=== PATIENT | male | born 1970 | race African-American/Black ===

== ENCOUNTER 2018-12-22 13:35 | Inpatient (IN) | payer BC ==
[2018-12-22 14:32] VITALS: BMI 34.2
--- NOTE | 2018-12-22 14:52 | HP ---
CIWA Score Nausea/Vomitin-Mild Nausea/No Vomiting Muscle Tremors: 2 Anxiety: 2 Agitation: 1-Slight > Activity Paroxysmal Sweats: 3 Orientation: 1-Uncertain about Date Tacttile Disturbances: 0-None Auditory Disturbances: 1-Very Mild Visual Disturbances: 2-Mild Sensitivity Headache: 1-Very Mild CIWA-Ar Total Score: 14 - Admission Criteria OASAS Guidelines: Admission for Medically Managed Detox: Requires at least one of the followin. CIWA greater than 12 2. Seizures within the past 24 hours 3. Delirium tremens within the past 24 hours 4. Hallucinations within the past 24 hours 5. Acute intervention needed for co occurring medical disorder 6. Acute intervention needed for co occurring psychiatric disorder 7. Severe withdrawal that cannot be handled at a lower level of care (continued vomiting, continued diarrhea, abnormal vital signs) requiring intravenous medication and/or fluids 8. Admission ROS S - [facility] Chief Complaint: WITHDRAWAL SYMPTOMS Allergies/Adverse Reactions: Allergies Allergy/AdvReac Type Severity Reaction Status Date / Time No Known Allergies Allergy Verified 12/22/18 14:16 History of Present Illness: 48 Y.O. MAN WITH AN EXTENSIVE HISTORY OF ALCOHOL AND COCAINE DEPENDENCE IS HERE SEEKING HIS FIRST ADMISSION TO DETOX. HE WAS AT [facility] ER EARLIER TODAY SEEKING DETOX TREATMENT (DID NOT PROVIDE DISCHARGE PAPERWORK); WAS PICKED BY A [facility] HAND EDGER TO BE ASSESSED HERE. Exam Limitations: No Limitations - Ebola screening Have you traveled outside of the country in the last 21 days: No (N) Have you had contact with anyone from an Ebola affected area: No Do you have a fever: No - Review of Systems Constitutional: Diaphoresis, Loss of Appetite, Night Sweats, Unintentional Wgt. Loss EENT: reports: Blurred Vision, Double Vision Respiratory: reports: Cough Cardiac: reports: No Symptoms Reported GI: reports: Abdominal cramping : reports: No Symptoms Reported Musculoskeletal: reports: No Symptoms Reported Integumentary: reports: No Symptoms Reported Neuro: reports: Headache Endocrine: reports: No Symptoms Reported Hematology: reports: No Symptoms Reported Psychiatric: reports: Anxious, Depressed Other Systems: Reviewed and Negative Patient History - Patient Medical History Hx Anemia: No Hx Asthma: No Hx Chronic Obstructive Pulmonary Disease (COPD): No Hx Cancer: No Hx Cardiac Disorders: No Hx Congestive Heart Failure: No Hx Hypertension: No Hx Hypercholesterolemia: No Hx Pacemaker: No HX Cerebrovascular Accident: No Hx Seizures: No Hx Dementia: No Hx Diabetes: No Hx Gastrointestinal Disorders: No Hx Liver Disease: No Hx Genitourinary Disorders: No Hx Sexually Transmitted Disorders: No Hx Renal Disease (ESRD): No Hx Thyroid Disease: No Hx Human Immunodeficiency Virus (HIV): No Hx Hepatitis C: No Hx Depression: Yes Hx Suicide Attempt: No Hx Bipolar Disorder: No Hx Schizophrenia: No - Patient Surgical History Past Surgical History: No - PPD History Previous Implant?: Yes Documented Results: Negative w/o proof PPD to be Administered?: Yes - Reproductive History Patient is a Female of Child Bearing Age (11 -55 yrs old): No - Smoking Cessation Smoking history: Current every day smoker Have you smoked in the past 12 months: Yes Aproximately how many cigarettes per day: 20 Initiated information on smoking cessation: Yes 'Breaking Loose' booklet given: 12/22/18 - Substance & Tx. History Hx Alcohol Use: Yes Hx Substance Use: Yes Substance Use Type: Alcohol, Cocaine - Substances abused Alcohol Substance route: Oral Frequency: Daily Amount used: 3/5 Cognanc/week & 1 Six pk Beer daily Age of first use: 16 Date of last use: 12/22/18 Heroin Substance route: Inhalation Frequency: 1-2 times per week Amount used: 2 bags Age of first use: 48 Date of last use: 12/21/18 Cocaine Substance route: Inhalation Frequency: Daily Amount used: $200- $300/day Age of first use: 25 Date of last use: 12/21/18 K2/Spice Substance route: Smoking Frequency: Daily Amount used: $50.00 Age of first use: 48 Date of last use: 12/20/18 Admission Physical Exam [facility] - Vital Signs Vital Signs: Vital Signs - 24 hr 12/22/18 14:16 Temperature 98.1 F Pulse Rate 95 H Respiratory 18 Rate Blood Pressure 154/90 - Physical General Appearance: Yes: Alcohol on Breath, Obese HEENTM: Yes: Normocephalic, Normal Voice, Pharynx Normal, Tm's normal Respiratory: Yes: Chest Non-Tender, Normal Breath Sounds, No Respiratory Distress, No Accessory Muscle Use Neck: Yes: Within Normal Limits Breast: Yes: Breast Exam Deferred Cardiology: Yes: Regular Rhythm, Regular Rate Abdominal: Yes: Normal Bowel Sounds, Non Tender, Flat Genitourinary: Yes: Other (NO COMPLAINTS REPORTED) Back: Yes: Normal Inspection Musculoskeletal: Yes: full range of Motion Extremities: Yes: Normal Range of Motion, Non-Tender Neurological: Yes: Alert, Normal Mood/Affect, Normal Response Integumentary: Yes: Normal Color, Dry, Warm Lymphatic: Yes: Within Normal Limits - Diagnostic (1) Alcohol dependence, uncomplicated Current Visit: Yes Status: Chronic (2) Nicotine dependence Current Visit: Yes Status: Chronic (3) Cocaine dependence Current Visit: Yes Status: Chronic Cleared for Admission [facility] - Detox or Rehab [facility] Level of Care: Medically Managed Detox Regimen/Protocol: Librium Claeared for Rehab Admission: No Breathalyzer - Breathalyzer Breathalyzer: 0.008 Urine Drug Screen - Test Device Lot number: [id number] Expiration date: 08/16/20 - Control Is test valid?: Yes - Results Drug screen NEGATIVE: No Urine drug screen results: JANETH-Cocaine Inpatient Rehab Admission - Rehab Decision to Admit Inpatient rehab admission?: No
[2018-12-22] MEDS ORDERED: MAGNESIUM CITRATE 300 ML BOTTLE PO PRN (14:56)
[2018-12-22] MEDS ORDERED: ONDANSETRON *ODT* 4 MG TABLET SL PRN (14:56)
[2018-12-22] MEDS ORDERED: MAG HYDROX/AL HYDROX/SIMETH 30 ML UNIT-DOSE CUP PO PRN (14:56)
[2018-12-22] MEDS ORDERED: hydrOXYzine PAMOATE 25 MG CAPSULE (FP) PO PRN (14:56)
[2018-12-22] MEDS ORDERED: ACETAMINOPHEN 325 MG TABLET (FP) PO PRN ×2 (14:56)
[2018-12-22] MEDS ORDERED: BISMUTH SUBSALICYLATE 524 MG/30 ML UD PO PRN (14:56)
[2018-12-22] MEDS ORDERED: METHOCARBAMOL 500 MG TABLET PO PRN (14:56)
[2018-12-22] MEDS ORDERED: MAGNESIUM HYDROX 2400MG/30ML ORAL SUSPENSION 30 ML CUP PO PRN (14:56)
[2018-12-22] MEDS ORDERED: chlordiazePOXIDE HCL 10 MG CAPSULE PO PRN (14:56)
[2018-12-22] MEDS ORDERED: NICOTINE POLACRILEX 2 MG GUM BUC PRN (14:56)
[2018-12-22] MEDS ORDERED: IBUPROFEN 400 MG TABLET (FP) PO PRN (14:56)
[2018-12-22] MEDS ORDERED: MENTHOL/PHENOL 1 EACH UD MM PRN (14:56)
[2018-12-22] MEDS: THIAMINE HCL 100 MG TABLET (FP) PO SCH (22:40)
[2018-12-22] MEDS: chlordiazePOXIDE HCL 25 MG CAPSULE PO SCH (22:40)
[2018-12-22] MEDS: MELATONIN 5 MG TABLETS PO PRN (22:40)
[2018-12-23] MEDS: chlordiazePOXIDE HCL 25 MG CAPSULE PO SCH ×3 (06:22→22:30)
--- NOTE | 2018-12-23 10:29 | EKG ---
Test Reason : Blood Pressure : / mmHG Vent. Rate : 087 BPM Atrial Rate : 087 BPM P-R Int : 140 ms QRS Dur : 130 ms QT Int : 388 ms P-R-T Axes : 049 013 029 degrees QTc Int : 466 ms NORMAL SINUS RHYTHM RIGHT BUNDLE BRANCH BLOCK ABNORMAL ECG NO PREVIOUS ECGS AVAILABLE Confirmed by WALTER QUINTANA MD ([id number]) on 12/23/2018 10:29:17 AM Referred By: Confirmed By:WALTER QUINTANA MD
[2018-12-23] MEDS: NICOTINE 14 MG/24 HOURS TOPICAL PATCH TD SCH (10:39)
[2018-12-23] MEDS: PRENATAL VITAMINS W/ FOLIC ACID TABLET (FP) PO SCH (10:39)
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
[2018-12-23 11:31] LABS: ALBUMIN 3.1 g/dl (3.4-5.0); BILIRUBIN,TOTAL 0.4 mg/dL (0.2-1); BLOOD UREA NITROGEN 15.9 mg/dL (7-18); CALCIUM 8.4 mg/dL (8.5-10.1); CREATININE 0.9 mg/dL (0.55-1.3); TOT PROT 7.2 g/dl (6.4-8.2)
[2018-12-23 11:33] LABS: HEMATOCRIT 42.1 % (35.4-49); MCH 32.8 pg (25.7-33.7); MCHC 33.2 g/dl (32.0-35.9); MEAN CELL VOLUME 98.8 fl (80-96); MEAN PLT VOLUME 8.7 fl (7.5-11.1); PLATELET COUNT 193 K/MM3 (134-434); RBC 4.26 M/mm3 (4.00-5.60); RDW 13.6 % (11.9-15.9); WHITE BLOOD COUNT 5.3 K/mm3 (4.0-10.0)
--- NOTE | 2018-12-23 15:47 | PN ---
S CIWA - CIWA Score Nausea/Vomitin-No Nausea/No Vomiting Muscle Tremors: 2 Anxiety: 3 Agitation: 2 Paroxysmal Sweats: 3 Orientation: 0-Oriented Tacttile Disturbances: 2-Mild Itch/Numbness/Burn Auditory Disturbances: 0-None Visual Disturbances: 0-None Headache: 0-None Present CIWA-Ar Total Score: 12 BHS Progress Note (SOAP) Subjective: Anxious, Tremors, Sweating. Objective: PATIENT A & O X 3. IN NO ACUTE DISTRESS. 12/23/18 15:45 Vital Signs Temperature 97.9 F 12/23/18 13:05 Pulse Rate 83 12/23/18 13:05 Respiratory Rate 18 12/23/18 13:05 Blood Pressure 121/84 12/23/18 13:05 O2 Sat by Pulse Oximetry (%) Laboratory Tests 12/23/18 12/23/18 12/23/18 07:45 07:45 07:45 WBC 5.3 RBC 4.26 Hgb 14.0 Hct 42.1 MCV 98.8 H MCH 32.8 MCHC 33.2 RDW 13.6 Plt Count 193 MPV 8.7 Sodium 142 Potassium 4.0 Chloride 108 H Carbon Dioxide 28 Anion Gap 6 L BUN 15.9 Creatinine 0.9 Est GFR (CKD-EPI)AfAm 116.65 Est GFR (CKD-EPI)NonAf 100.64 Random Glucose 87 Calcium 8.4 L Total Bilirubin 0.4 AST 47 H ALT 67 H Alkaline Phosphatase 100 Total Protein 7.2 Albumin 3.1 L RPR Titer Nonreactive LABS NOTED. Assessment: 12/23/18 15:46 WITHDRAWAL SYMPTOMS. ELEVATED AST LEVEL. ELEVATED ALT LEVEL. Plan: CONTINUE DETOX.
[2018-12-23] MEDS: THIAMINE HCL 100 MG TABLET (FP) PO SCH (22:30)
[2018-12-23] MEDS: MELATONIN 5 MG TABLETS PO PRN (22:31)
[2018-12-24] MEDS: chlordiazePOXIDE 5 MG CAPSULE PO SCH ×3 (07:15→22:32)
[2018-12-24] MEDS: PRENATAL VITAMINS W/ FOLIC ACID TABLET (FP) PO SCH (10:23)
[2018-12-24] MEDS: NICOTINE 14 MG/24 HOURS TOPICAL PATCH TD SCH (10:23)
--- NOTE | 2018-12-24 13:38 | PN ---
S CIWA - CIWA Score Nausea/Vomitin-No Nausea/No Vomiting Muscle Tremors: 3 Anxiety: 2 Agitation: 2 Paroxysmal Sweats: 1-Minimal Palms Moist Orientation: 0-Oriented Tacttile Disturbances: 0-None Auditory Disturbances: 0-None Visual Disturbances: 0-None Headache: 0-None Present CIWA-Ar Total Score: 8 BHS Progress Note (SOAP) Subjective: sweats tired irritable Objective: 12/24/18 13:38 Vital Signs Temperature 97.9 F 12/24/18 13:33 Pulse Rate 77 12/24/18 13:33 Respiratory Rate 18 12/24/18 13:33 Blood Pressure 146/96 12/24/18 13:33 O2 Sat by Pulse Oximetry (%) aaox3 ambulating no acute distress Assessment: 12/24/18 13:38 withdrawals Plan: continue detox increase fluids
[2018-12-24] MEDS: MELATONIN 5 MG TABLETS PO PRN (22:32)
[2018-12-24] MEDS: THIAMINE HCL 100 MG TABLET (FP) PO SCH (22:32)
[2018-12-25] MEDS ORDERED: chlordiazePOXIDE HCL 10 MG CAPSULE PO PRN
[2018-12-25] MEDS: chlordiazePOXIDE HCL 10 MG CAPSULE PO SCH ×3 (06:00→22:25)
[2018-12-25] MEDS: NICOTINE 14 MG/24 HOURS TOPICAL PATCH TD SCH (10:16)
[2018-12-25] MEDS: PRENATAL VITAMINS W/ FOLIC ACID TABLET (FP) PO SCH (10:17)
--- NOTE | 2018-12-25 11:51 | PN ---
S CIWA - CIWA Score Nausea/Vomitin-No Nausea/No Vomiting Muscle Tremors: 2 Anxiety: 1-Mildly Anxious Agitation: 1-Slight > Activity Paroxysmal Sweats: 2 Orientation: 0-Oriented Tacttile Disturbances: 0-None Auditory Disturbances: 0-None Visual Disturbances: 0-None Headache: 0-None Present CIWA-Ar Total Score: 6 BHS Progress Note (SOAP) Subjective: sweats anxiety Objective: 12/25/18 11:38 Vital Signs Temperature 97.7 F 12/25/18 10:17 Pulse Rate 80 12/25/18 10:17 Respiratory Rate 18 12/25/18 10:17 Blood Pressure 137/77 12/25/18 10:17 O2 Sat by Pulse Oximetry (%) Laboratory Tests 12/23/18 12/23/18 12/23/18 07:45 07:45 07:45 WBC 5.3 RBC 4.26 Hgb 14.0 Hct 42.1 MCV 98.8 H MCH 32.8 MCHC 33.2 RDW 13.6 Plt Count 193 MPV 8.7 Sodium 142 Potassium 4.0 Chloride 108 H Carbon Dioxide 28 Anion Gap 6 L BUN 15.9 Creatinine 0.9 Est GFR (CKD-EPI)AfAm 116.65 Est GFR (CKD-EPI)NonAf 100.64 Random Glucose 87 Calcium 8.4 L Total Bilirubin 0.4 AST 47 H ALT 67 H Alkaline Phosphatase 100 Total Protein 7.2 Albumin 3.1 L RPR Titer Nonreactive Hep C Ab Diagnostic HIV-1 Antibody HIV Ag/Ab Interpret HIV-2 Antibody HIV 1&2 Ag/Ab, 4th Gen 12/23/18 07:45 WBC RBC Hgb Hct MCV MCH MCHC RDW Plt Count MPV Sodium Potassium Chloride Carbon Dioxide Anion Gap BUN Creatinine Est GFR (CKD-EPI)AfAm Est GFR (CKD-EPI)NonAf Random Glucose Calcium Total Bilirubin AST ALT Alkaline Phosphatase Total Protein Albumin RPR Titer Hep C Ab Diagnostic 0.2 HIV-1 Antibody Positive H HIV Ag/Ab Interpret Hiv-1 positive HIV-2 Antibody Negative HIV 1&2 Ag/Ab, 4th Gen Reactive H lab results indicate pt is +HIV spoke with sawyer cork slabs from [facility] ext [phone] who confirmed that this was sent to [facility] and they confirmed that pt is HIV+. spoke with Keiry from the [facility] ext [phone], she took down pt information and will follow up. pt is aaox3 ambulating no acute distress Assessment: 12/25/18 11:51 mild withdrawals Plan: continue detox pt will be followed up regarding pt HIV status with the [facility] d/c in am
--- NOTE | 2018-12-25 16:04 | PN ---
[facility] Progress Note Note: pt does not live in the [facility] therefore, the [facility] in our facility cannot follow up with his continuity of care regarding the newly diagnosed HIV status. However, pt was spoken to along with the his counselor Tone and counseling supervisor decorating Piper Rider and myself regarding the importance to follow up with treatment and a list of HIV clinics were discussed and copy provided along with lab result. Pt agreed to follow up and appeared accepting of his diagnosis.
[2018-12-25] MEDS: MELATONIN 5 MG TABLETS PO PRN (22:25)
[2018-12-25] MEDS: THIAMINE HCL 100 MG TABLET (FP) PO SCH (22:25)
[2018-12-26] MEDS ORDERED: chlordiazePOXIDE HCL 10 MG CAPSULE PO ONE (05:00)
[2018-12-26 06:23] VITALS: BP 135/71; PULSE 73; TEMP 97
--- NOTE | 2018-12-26 11:58 | DS ---
[facility] Detox Discharge Summary Admission Date: 12/22/18 Discharge Date: 12/26/18 - History Present History: Alcohol Dependence, Cocaine Dependence, Opioid Dependence - Physical Exam Results Vital Signs: Vital Signs Temperature 97 F L 12/26/18 06:23 Pulse Rate 73 12/26/18 06:23 Respiratory Rate 18 12/26/18 06:23 Blood Pressure 135/71 12/26/18 06:23 O2 Sat by Pulse Oximetry (%) Pertinent Admission Physical Exam Findings: pt arrived in withdrawals Vital Signs Temperature 97 F L 12/26/18 06:23 Pulse Rate 73 12/26/18 06:23 Respiratory Rate 18 12/26/18 06:23 Blood Pressure 135/71 12/26/18 06:23 O2 Sat by Pulse Oximetry (%) Laboratory Tests 12/23/18 12/23/18 12/23/18 07:45 07:45 07:45 WBC 5.3 RBC 4.26 Hgb 14.0 Hct 42.1 MCV 98.8 H MCH 32.8 MCHC 33.2 RDW 13.6 Plt Count 193 MPV 8.7 Sodium 142 Potassium 4.0 Chloride 108 H Carbon Dioxide 28 Anion Gap 6 L BUN 15.9 Creatinine 0.9 Est GFR (CKD-EPI)AfAm 116.65 Est GFR (CKD-EPI)NonAf 100.64 Random Glucose 87 Calcium 8.4 L Total Bilirubin 0.4 AST 47 H ALT 67 H Alkaline Phosphatase 100 Total Protein 7.2 Albumin 3.1 L RPR Titer Nonreactive Hep C Ab Diagnostic HIV-1 Antibody HIV Ag/Ab Interpret HIV-2 Antibody HIV 1&2 Ag/Ab, 4th Gen 12/23/18 07:45 WBC RBC Hgb Hct MCV MCH MCHC RDW Plt Count MPV Sodium Potassium Chloride Carbon Dioxide Anion Gap BUN Creatinine Est GFR (CKD-EPI)AfAm Est GFR (CKD-EPI)NonAf Random Glucose Calcium Total Bilirubin AST ALT Alkaline Phosphatase Total Protein Albumin RPR Titer Hep C Ab Diagnostic 0.2 HIV-1 Antibody Positive H HIV Ag/Ab Interpret Hiv-1 positive HIV-2 Antibody Negative HIV 1&2 Ag/Ab, 4th Gen Reactive H newly diagnosed HIV status; pt made aware; follow up information to clinics provided aaox3 ambulating no acute distress - Treatment Hospital Course: Detox Protocol Followed, Detoxed Safely, Responded well, Discharged Condition Good, Rehab Referral Accepted Patient has Accepted a Rehab Referral to: referral to rehab provided along with clinic for his diagnosis (HIV) - Medication Discharge Medications: Ambulatory Orders NK [No Known Home Medication] 12/22/18 - Diagnosis (1) Alcohol dependence, uncomplicated Status: Chronic (2) Cannabis dependence Status: Chronic (3) Cocaine dependence Status: Chronic Qualifiers: Substance use status: uncomplicated Qualified Code(s): F14.20 - Cocaine dependence, uncomplicated (4) Opioid abuse Status: Chronic (5) Substance-induced sleep disorder Status: Acute (6) Nicotine dependence Status: Chronic Qualifiers: Nicotine product type: cigarettes Substance use status: uncomplicated Qualified Code(s): F17.210 - Nicotine dependence, cigarettes, uncomplicated (7) HIV (human immunodeficiency virus infection) Status: Acute (8) HIV antibody positive Status: Acute - AMA Did Patient Leave Against Medical Advice: No
== END 2018-12-26 08:57 | disposition home or self-care (01) | DRG 773 ==
LOC: YASAS 13:35 → Y6N 15:08
PROVIDERS: ADMIT Allergy & Immunology; ATTEND Allergy & Immunology
PROC: HZ2ZZZZ Detoxification Services for Substance Abuse Treatment (ICD-10-PCS; principal; 2018-12-22)
DX: F11.23 Opioid dependence with withdrawal (principal); F10.230 Alcohol dependence with withdrawal, uncomplicated; F14.20 Cocaine dependence, uncomplicated; F12.20 Cannabis dependence, uncomplicated; F17.210 Nicotine dependence, cigarettes, uncomplicated; F19.282 Other psychoactive substance dependence with psychoactive substance-induced sleep disorder; F32.9 Major depressive disorder, single episode, unspecified; Z21 Asymptomatic human immunodeficiency virus [HIV] infection status; R94.5 Abnormal results of liver function studies
CPT/HCPCS: 36415; 80053; 85027; 86593; 86803; 87389; 93005; 93010